=== PATIENT | male | born 1945 | race Caucasian/White ===

== ENCOUNTER 2017-06-24 13:21 | Inpatient (IN) | payer OTHER, MEDICARE ==
[2017-06-24] VITALS (8 sets, daily range): BP systolic 157–198; BP diastolic 85–152; PULSE 79–94; RESP 15–20; TEMP 97.8–98.3; O2SAT 95–100
[~2017-06-24] VITALS: Ht 170.2 cm; Wt 80.5 kg
--- NOTE | 2017-06-24 13:41 | PD ---
HPI Chief Complaint: Fall Time Seen by Provider: 13:31 Travel History International Travel<30 days: No Contact w/Intl Traveler<30days: No Traveled to known affect area: No History of Present Illness HPI per ems, patient was shopping at [employer] when he fell, it was not immediately witnessed....but no apparent tonic clonic activity. apparently patient got up and kept shopping, by the time he got to counter to pay, he kept asking server cashier if he had paid (which he had already, but kept asking), so ranch manager alerted and 911 called...patient stated to ems, all he wants to do is go to his car so he can get back home. at this time however patient was still confused though ambulatory on his own. PER DAUGHTER NO H/O SEIZURE ONLY OF HTN AND DM PFSH Social History Tobacco Use: No Allergies-Medications (Allergen,Severity, Reaction): Coded Allergies: loratadine (Verified Allergy, Intermediate, Nausea/Vomiting, 06/24/17) pseudoephedrine (Verified Allergy, Intermediate, Nausea/Vomiting, 06/24/17) Reported Meds & Prescriptions Reported Meds & Active Scripts Active No Active Prescriptions or Reported Medications Review of Systems ROS Limitations: Altered Mental Status Except as stated in HPI: all other systems reviewed are Neg General / Constitutional: No: Fever Eyes: No: Visual changes HENT: No: Headaches Cardiovascular: No: Chest Pain or Discomfort Respiratory: No: Shortness of Breath Gastrointestinal: No: Abdominal Pain Genitourinary: No: Dysuria Musculoskeletal: No: Pain Skin: No Rash Neurologic: No: Weakness Psychiatric: No: Depression Endocrine: No: Polydipsia Hematologic/Lymphatic: No: Easy Bruising Physical Exam Narrative GENERAL: SKIN: Warm and dry. HEAD: Atraumatic. Normocephalic. EYES: Pupils equal and round. No scleral icterus. No injection or drainage. ENT: No nasal bleeding or discharge. Mucous membranes pink and moist. right incisor tooth has been avulsed NECK: Trachea midline. No JVD. CARDIOVASCULAR: Regular rate and rhythm. RESPIRATORY: No accessory muscle use. Clear to auscultation. Breath sounds equal bilaterally. GASTROINTESTINAL: Abdomen soft, non-tender, nondistended. MUSCULOSKELETAL: Extremities without clubbing, cyanosis, or edema. No obvious deformities. NEUROLOGICAL: Awake and alert but confused. No obvious cranial nerve deficits. Motor grossly within normal limits. Five out of 5 muscle strength in the arms and legs. Normal speech. PSYCHIATRIC: Appropriate mood and affect; insight and judgment normal. Data Data Last Documented VS Vital Signs Date Time Temp Pulse Resp B/P (MAP) Pulse Ox O2 Delivery O2 Flow Rate FiO2 06/24/17 13:35 89 18 100 Room Air 06/24/17 13:35 98.3 198/152 (167) Orders Orders Complete Blood Count With Diff (06/24/17 13:31) Alcohol (Ethanol) (06/24/17 13:31) Drug Screen, Random Urine (06/24/17 13:31) Electrocardiogram (06/24/17 ) Ct Brain W/O Iv Contrast(Rout) (06/24/17 ) Blood Glucose (06/24/17 13:31) Ecg Monitoring (06/24/17 13:31) Iv Access Insert/Monitor (06/24/17 13:31) Oximetry (06/24/17 13:31) Comprehensive Metabolic Panel (06/24/17 13:31) Urinalysis - C+S If Indicated (06/24/17 13:31) Ct Cerv Spine W/O Contrast (06/24/17 13:46) Labetalol Inj (Trandate Inj) (06/24/17 16:15) Labs Laboratory Tests Test 06/24/17 14:44 White Blood Count 8.3 TH/MM3 Red Blood Count 4.69 MIL/MM3 Hemoglobin 14.3 GM/DL Hematocrit 40.4 % Mean Corpuscular Volume 86.0 FL Mean Corpuscular Hemoglobin 30.4 PG Mean Corpuscular Hemoglobin Concent 35.3 % Red Cell Distribution Width 14.5 % Platelet Count 182 TH/MM3 Mean Platelet Volume 8.6 FL Neutrophils (%) (Auto) 73.0 % Lymphocytes (%) (Auto) 16.9 % Monocytes (%) (Auto) 7.3 % Eosinophils (%) (Auto) 2.2 % Basophils (%) (Auto) 0.6 % Neutrophils # (Auto) 6.0 TH/MM3 Lymphocytes # (Auto) 1.4 TH/MM3 Monocytes # (Auto) 0.6 TH/MM3 Eosinophils # (Auto) 0.2 TH/MM3 Basophils # (Auto) 0.0 TH/MM3 CBC Comment DIFF FINAL Differential Comment Urine Color YELLOW Urine Turbidity CLEAR Urine pH 6.5 Urine Specific [place] 1.020 Urine Protein 100 mg/dL Urine Glucose (UA) 1000 mg/dL Urine Ketones NEG mg/dL Urine Occult Blood SMALL Urine Nitrite NEG Urine Bilirubin NEG Urine Urobilinogen LESS THAN 2.0 MG/DL Urine Leukocyte Esterase NEG Urine RBC 5 /hpf Urine WBC 3 /hpf Microscopic Urinalysis Comment CULT NOT INDICATED Blood Urea Nitrogen 18 MG/DL Creatinine 1.17 MG/DL Random Glucose 290 MG/DL Total Protein 7.5 GM/DL Albumin 3.5 GM/DL Calcium Level 8.2 MG/DL Alkaline Phosphatase 92 U/L Aspartate Amino Transf (AST/SGOT) 27 U/L Alanine Aminotransferase (ALT/SGPT) 20 U/L Total Bilirubin 0.5 MG/DL Sodium Level 134 MEQ/L Potassium Level 4.5 MEQ/L Chloride Level 102 MEQ/L Carbon Dioxide Level 22.8 MEQ/L Anion Gap 9 MEQ/L Estimat Glomerular Filtration Rate 61 ML/MIN Urine Opiates Screen NEG Urine Barbiturates Screen NEG Urine Amphetamines Screen NEG Urine Benzodiazepines Screen NEG Urine Cocaine Screen NEG Urine Cannabinoids Screen NEG Ethyl Alcohol Level LESS THAN 3 MG/DL MDM Medical Decision Making Medical Screen Exam Complete: Yes Emergency Medical Condition: Yes Medical Record Reviewed: Yes Interpretation(s) ekg: nsr 90, pvc, incomplete rbbb, frequent pvc, Differential Diagnosis ich v skull fx v syncope Narrative Course DUE TO PATIENT'S HYPERTENSIVE NATURE, AND FREQUENT PVC'S, THE PATIENT'S SYNCOPE IS BELIEVED TO HAVE A CARDIAC SOURCE AND THUS REQUIRES FURTHER INVESTIGATION Critical Care Narrative CRITICAL CARE NOTE: With evaluation of the patient, labs, EKG, receipt of radiologic studies, administration of medications, reevaluation the patient and discussion of the patient with the admitting physicians, the total critical care time was [30] minutes. Time to perform other separately billable procedures was not included in the critical care time. Diagnosis Primary Impression: SYNCOPE Additional Impressions: Accelerated hypertension FREQUENT MONOMORPHIC PVC Admitting Information Admitting Physician Requests: Observation Scripts No Active Prescriptions or Reported Meds Mathew Varner MD Jun 24, 2017 13:41
--- NOTE | 2017-06-24 14:11 | RADRPT ---
EXAM DATE/TIME: 06/24/2017 13:51 [facility] COMPARISON: No previous studies available for comparison. INDICATIONS : Unwitnessed fall, altered mental status, confusion. RADIATION DOSE: 39.91 CTDIvol (mGy) MEDICAL HISTORY : Hypertension. Diabetes SURGICAL HISTORY : None. ENCOUNTER: Initial ACUITY: 1 day PAIN SCALE: 3/10 LOCATION: cranial TECHNIQUE: Multiple contiguous axial images were obtained of the head. Using automated exposure control and adj ustment of the mA and/or kV according to patient size, radiation dose was kept as low as reasonably a chievable to obtain optimal diagnostic quality images. DICOM format image data is available electro nically for review and comparison. FINDINGS: CEREBRUM: The ventricles are normal for age. No evidence of midline shift, mass lesion, hemorrhage or acute in farction. No extra-axial fluid collections are seen. POSTERIOR FOSSA: The cerebellum and brainstem are intact. The 4th ventricle is midline. The cerebellopontine angle i s unremarkable. EXTRACRANIAL: The visualized portion of the orbits is intact. Mucoperiosteal thickening in both maxillary sinuses worse on the right than the left. SKULL: The calvaria is intact. No evidence of skull fracture. CONCLUSION: Negative for acute process. Chronic sinus disease. Arnaud De Anda MD FACR on June 24, 2017 at 13:55 Board Certified Radiologist. This report was verified electronically.
--- NOTE | 2017-06-24 14:16 | RADRPT ---
EXAM DATE/TIME: 06/24/2017 13:51 [facility] COMPARISON: No previous studies available for comparison. INDICATIONS : Unwitnessed fall.Confusion. RADIATION DOSE: 19.07 CTDIvol (mGy) MEDICAL HISTORY : Hypertension. Diabetes SURGICAL HISTORY : None. ENCOUNTER: Initial ACUITY: 1 day PAIN SCALE: 3/10 LOCATION: Bilateral neck TECHNIQUE: Volumetric scanning of the cervical spine was performed. Multiplanar reconstructions in the sagittal, coronal and oblique axial planes were performed. Using automated exposure control and adjustment o f the mA and/or kV according to patient size, radiation dose was kept as low as reasonably achievable to obtain optimal diagnostic quality images. DICOM format image data is available electronically f or review and comparison. FINDINGS: VERTEBRAE: Normal vertebral body height. ALIGNMENT: No evidence of subluxation. C2-C3: The bony spinal canal is normal in size. No evidence of disc bulge or herniation. The neural forami na are bilaterally patent. C3-C4: Large spur is seen encroaching the right neural foramen. C4-C5: Mild facet disease is present. There is no significant stenosis. C5-C6: Mild facet disease is present with minimal left-sided neural foramina encroachment. C6-C7: Right sided neuroforamina encroachment is evident. There is no spinal stenosis. C7-T1: The bony spinal canal is normal in size. No evidence of disc bulge or herniation. The neural forami na are bilaterally patent. CONCLUSION: Mild degenerative changes. No fracture Arnaud De Anda MD FACR on June 24, 2017 at 14:09 Board Certified Radiologist. This report was verified electronically.
[2017-06-24 15:18] LABS: BASOPHIL % 0.6 % (0.0-2.0); EOSINOPHIL # 0.2 TH/MM3 (0-0.4); EOSINOPHIL % 2.2 % (0.0-4.0); HEMATOCRIT 40.4 % (39.0-51.0); HEMOGLOBIN 14.3 GM/DL (13.0-17.0); LYMPH % 16.9 % (9.0-44.0); LYMPHOCYTE # 1.4 TH/MM3 (1.0-4.8); MEAN CORPUSCULAR HEMOGLOBIN 30.4 PG (27.0-34.0); MEAN CORPUSCULAR HGB CONC 35.3 % (32.0-36.0); MEAN PLATELET VOLUME 8.6 FL (7.0-11.0); MONO % 7.3 % (0.0-8.0); MONOCYTE # 0.6 TH/MM3 (0-0.9); PLATELET COUNT 182 TH/MM3 (150-450); RED BLOOD COUNT 4.69 MIL/MM3 (4.50-5.90); RED CELL DISTRIBUTION WIDTH 14.5 % (11.6-17.2); WHITE BLOOD COUNT 8.3 TH/MM3 (4.0-11.0)
[2017-06-24 15:34] LABS: BILIRUBIN, URINE NEG (NEG); BLOOD, URINE SMALL (NEG); GLUCOSE,URINE 1000 mg/dL (NEG); KETONE, URINE NEG (NEG); NITRITE,URINE NEG (NEG); PH, URINE 6.5 (5.0-8.5); URINE COLOR YELLOW (YELLW/STRAW); URINE LEUKOCYTE ESTERASE NEG (NEG)
[2017-06-24 15:38] LABS: ALBUMIN 3.5 GM/DL (3.4-5.0); ALKALINE PHOSPHATASE 92 U/L (45-117); ALT (GPT) 20 U/L (12-78); AST (GOT) 27 U/L (15-37); BICARBONATE 22.8 MEQ/L (21.0-32.0); BLOOD UREA NITROGEN 18 MG/DL (7-18); CALCIUM 8.2 MG/DL (8.5-10.1); CHLORIDE 102 MEQ/L (98-107); CREATININE 1.17 MG/DL (0.60-1.30); GLOMERULAR FILTRATION RATE 61 ML/MIN (>89); GLUCOSE,RANDOM 290 MG/DL (74-106); SODIUM (NA) 134 MEQ/L (136-145); TOTAL BILIRUBIN ADULT 0.5 MG/DL (0.2-1.0); TOTAL PROTEIN 7.5 GM/DL (6.4-8.2)
[2017-06-24] MEDS ORDERED: LABETALOL HCL 100 MG/20 ML VIAL IV PUSH ONE (16:15)
[2017-06-24] MEDS ORDERED: NALOXONE HCL 0.4 MG/ML AMP IV PUSH PRN (17:00)
[2017-06-24] MEDS ORDERED: ONDANSETRON HCL 4 MG/2 ML VIAL IVP PRN (17:00)
[2017-06-24] MEDS ORDERED: ACETAMINOPHEN 325 MG TAB PO PRN (17:00)
[2017-06-24] MEDS ORDERED: SODIUM CHLORIDE 0.9% FLUSH 10 ML FLUSH IV FLUSH PRN (17:00)
[2017-06-24] MEDS ORDERED: BISACODYL 10 MG SUPP RECTAL PRN (17:00)
[2017-06-24] MEDS ORDERED: LACTULOSE SYRUP 20 GM/30 ML CUP PO PRN (17:00)
[2017-06-24] MEDS ORDERED: MAGNESIUM HYDROXIDE SUSP 30 ML CUP PO PRN (17:00)
[2017-06-24] MEDS ORDERED: SENNOSIDES 8.6 MG TAB PO PRN (17:00)
--- NOTE | 2017-06-24 17:08 | HHI.HP ---
[facility] Primary Care Physician No Primary Care Physician Admission Diagnosis SYNCOPE,ACCELERATED HTN,BIGEMINY Diagnoses: (1) Syncope (2) Diabetes (3) HTN (hypertension) Chief Complaint: Passed out Travel History International Travel<30 Days: No Contact w/Intl Traveler <30 Da: No Traveled to Known Affected Are: No History of Present Illness Written by Curt Guerra, acting as scribe for [Nehal] on 06/24/17 at 17:01. 71-year-old with PMH of DM, and HTN who presented to the ED via [facility] after suffering syncopal episode while at [facility]. Daughter who is at bedside repots that patient was at [employer] at the [place] when he reportedly became incoherent, with repetitive speaking. Patient is not sure what occurred, but remembers that his head hit the floor. Patient repots that he does have a history of lightheadedness when he takes his Metformin more than once a day. Lightheadedness will be even worse when he takes glipizide along with the Metformin for this reason he does not takes his Glipizide on a regular basis. Patient repots chest soreness and pain, believes this may be related to the fall. At the moment he denies any SOB, lightheadedness, nausea, vomiting, headaches, visual changes, or weakness. His only pain that he complains of in the head is from "head brace" that was placed on him. He also repots taking supplements which he gets through [place] to prevent him from having strokes since he has a past family history of flanagan. Pas in [facility] to get subs. Incoherent repetitive speaking and patient remembers hitting floor. Right sided chest pain, hit his face with broken tooth. No headaches, pain from neck brace. No SOB no lightheadedness, no N/V. When he takes metformin more than once a day he will get lightheaded. Only medication he is taken is Metformin. Will take the glipizide once in a while only. Takes supplements over [place] for prevention of strokes. Repots he [facility] and was told this was negative. Denies any weakness or weakness or numbness. DM HTN DM arrhythmia (frequent PVC's) Holter monitor in place before Heart cath done in [facility] negative done yrs ago Family history of HLD, DM, Father and 2 brothers with strokes in 60's Tobacco: Denies Alcohol:Denies Illicit drugs:Denies Past Family Social History Allergies: Coded Allergies: loratadine (Verified Allergy, Intermediate, Nausea/Vomiting, 06/24/17) pseudoephedrine (Verified Allergy, Intermediate, Nausea/Vomiting, 06/24/17) Physical Exam Vital Signs Vital Signs Date Time Temp Pulse Resp B/P (MAP) Pulse Ox O2 Delivery O2 Flow Rate FiO2 06/24/17 16:46 91 18 157/94 (115) 100 Room Air 06/24/17 14:45 88 15 198/115 (142) 100 Room Air 06/24/17 13:35 89 18 100 Room Air 06/24/17 13:35 89 18 100 Room Air 06/24/17 13:35 98.3 87 18 198/152 (167) 100 Room Air 06/24/17 13:31 97.8 89 18 198/123 (148) 100 Physical Exam GENERAL: This is a well-nourished, well-developed patient, in no apparent distress. SKIN: No rashes, ecchymoses or lesions. Cool and dry. HEAD: Atraumatic. Normocephalic. No temporal or scalp tenderness. EYES: Pupils equal round and reactive. Extraocular motions intact. No scleral icterus. No injection or drainage. ENT: Nose without bleeding, purulent drainage or septal hematoma. Throat without erythema, tonsillar hypertrophy or exudate. Uvula midline. Airway patent. NECK: Trachea midline. No JVD or lymphadenopathy. Supple, nontender, no meningeal signs. CARDIOVASCULAR: Regular rate and rhythm without murmurs, gallops, or rubs. RESPIRATORY: Clear to auscultation. Breath sounds equal bilaterally. No wheezes , rales, or rhonchi. GASTROINTESTINAL: Abdomen soft, non-tender, nondistended. No hepato-splenomegaly , or palpable masses. No guarding. MUSCULOSKELETAL: Extremities without clubbing, cyanosis, or edema. No joint tenderness, effusion, or edema noted. No calf tenderness. Negative Homans sign bilaterally. NEUROLOGICAL: Awake and alert. Cranial nerves II through XII intact. Motor and sensory grossly within normal limits. Five out of 5 muscle strength in all muscle groups. Normal speech. Laboratory Laboratory Tests Test 06/24/17 14:44 White Blood Count 8.3 Red Blood Count 4.69 Hemoglobin 14.3 Hematocrit 40.4 Mean Corpuscular Volume 86.0 Mean Corpuscular Hemoglobin 30.4 Mean Corpuscular Hemoglobin Concent 35.3 Red Cell Distribution Width 14.5 Platelet Count 182 Mean Platelet Volume 8.6 Neutrophils (%) (Auto) 73.0 Lymphocytes (%) (Auto) 16.9 Monocytes (%) (Auto) 7.3 Eosinophils (%) (Auto) 2.2 Basophils (%) (Auto) 0.6 Neutrophils # (Auto) 6.0 Lymphocytes # (Auto) 1.4 Monocytes # (Auto) 0.6 Eosinophils # (Auto) 0.2 Basophils # (Auto) 0.0 CBC Comment DIFF FINAL Differential Comment Urine Color YELLOW Urine Turbidity CLEAR Urine pH 6.5 Urine Specific [place] 1.020 Urine Protein 100 Urine Glucose (UA) 1000 Urine Ketones NEG Urine Occult Blood SMALL Urine Nitrite NEG Urine Bilirubin NEG Urine Urobilinogen LESS THAN 2.0 Urine Leukocyte Esterase NEG Urine RBC 5 Urine WBC 3 Microscopic Urinalysis Comment CULT NOT INDICATED Blood Urea Nitrogen 18 Creatinine 1.17 Random Glucose 290 Total Protein 7.5 Albumin 3.5 Calcium Level 8.2 Alkaline Phosphatase 92 Aspartate Amino Transf (AST/SGOT) 27 Alanine Aminotransferase (ALT/SGPT) 20 Total Bilirubin 0.5 Sodium Level 134 Potassium Level 4.5 Chloride Level 102 Carbon Dioxide Level 22.8 Anion Gap 9 Estimat Glomerular Filtration Rate 61 Urine Opiates Screen NEG Urine Barbiturates Screen NEG Urine Amphetamines Screen NEG Urine Benzodiazepines Screen NEG Urine Cocaine Screen NEG Urine Cannabinoids Screen NEG Ethyl Alcohol Level LESS THAN 3 Result Diagram: 06/24/17 1444 06/24/17 1444 Caprini VTE Risk Assessment Caprini Risk Assessment Model Point Value = 1 Point Value = 2 Point Value = 3 Point Value = 5 Age 41-60 Minor surgery BMI > 25 kg/m2 Swollen legs Varicose veins or History of unexplained or recurrent spontaneous Oral contraceptives or hormone replacement Sepsis (< 1 month) Serious lung disease, including pneumonia (< 1 month) Abnormal pulmonary function Acute myocardial infarction Congestive heart failure (< 1 month) History of inflammatory bowel disease Medical patient at bed rest Age 61-74 Arthroscopic surgery Major open surgery (> 45 min) Laparoscopic surgery (> 45 min) Malignancy Confined to bed (> 72 hours) Immobilizing plaster cast Central venous access Age >= 75 History of VTE Family history of VTE Factor V Leiden Prothrombin [id number] Lupus anticoagulant Anticardiolipin antibodies Elevated serum homocysteine Heparin-induced thrombocytopenia Other congenital or acquired thrombophilia Stroke (< 1 month) Elective arthroplasty Hip, pelvis, or leg fracture Acute spinal cord injury (< 1 month) Prophylaxis Regimen Total Risk Factor Score Risk Level Prophylaxis Regimen 0-1 Low Early ambulation 2 Moderate Order ONE of the following: *Sequential Compression Device (SCD) *Heparin 5000 units SQ BID 3-4 Higher Order ONE of the following medications: *Heparin 5000 units SQ TID *Enoxaparin/Lovenox 40 mg SQ daily (WT < 150 kg, CrCl > 30 mL/min) *Enoxaparin/Lovenox 30 mg SQ daily (WT < 150 kg, CrCl > 10-29 mL/min) *Enoxaparin/Lovenox 30 mg SQ BID (WT < 150 kg, CrCl > 30 mL/min) AND/OR *Sequential Compression Device (SCD) 5 or more Highest Order ONE of the following medications: *Heparin 5000 units SQ TID (Preferred with Epidurals) *Enoxaparin/Lovenox 40 mg SQ daily (WT < 150 kg, CrCl > 30 mL/min) *Enoxaparin/Lovenox 30 mg SQ daily (WT < 150 kg, CrCl > 10-29 mL/min) *Enoxaparin/Lovenox 30 mg SQ BID (WT < 150 kg, CrCl > 30 mL/min) AND *Sequential Compression Device (SCD) Assessment and Plan Assessment and Plan This note was transcribed by OMAR Manzanares . I, Dr. Noemí Calvert personally performed the history, physical exam, and medical decision making; and confirmed the accuracy of the information in the transcribed note. Authenticated by Dr. Noemí Calvert on 06/24/17 at 17:01. Physician Certification Order for Inpatient Services The services are ordered in accordance with Medicare regulations or non- Medicare payer requirements, as applicable. In the case of services not specified as inpatient-only, they are appropriately provided as inpatient services in accordance with the 2-midnight benchmark. days is the estimated time the patient will need to remain in the hospital, assuming treatment plan goals are met and no additional complications. Curt Guerra Jun 24, 2017 17:08 Noemí Calvert MD Jun 24, 2017 17:32
--- NOTE | 2017-06-24 17:39 | HHI.HP ---
[facility] Primary Care Physician No Primary Care Physician Admission Diagnosis SYNCOPE,ACCELERATED HTN,BIGEMINY Diagnoses: (1) Syncope Diagnosis: Principal (2) Diabetes (3) HTN (hypertension) Chief Complaint: Passed out Travel History International Travel<30 Days: No Contact w/Intl Traveler <30 Da: No Traveled to Known Affected Are: No History of Present Illness Written by Curt Guerra, acting as scribe for [Nehal] on 06/24/17 at 17:01. 71-year-old with PMH of DM, and HTN who presented to the ED via [facility] after suffering syncopal episode while at [place]. Daughter who is at bedside repots that patient was at [employer] at the [place] when he reportedly became incoherent, with repetitive speaking. Patient is not sure what occurred, but remembers that his head hit the floor. Patient repots that he does have a history of lightheadedness when he takes his Metformin more than once a day. Lightheadedness will be even worse when he takes glipizide along with the Metformin for this reason he does not takes his Glipizide on a regular basis. Patient repots chest soreness and pain, believes this may be related to the fall. At the moment he denies any SOB, lightheadedness, nausea, vomiting, headaches, visual changes, or weakness. His only pain that he complains of in the head is from "head brace" that was placed on him. He also repots taking supplements which he gets through [employer] to prevent him from having strokes since he has a past family history of flanagan. 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 Daughter reports that patient was supposed to be on a beta dyana although has not been taking this. Discussed the plan to keep patient in observation unit for workup along with testing. Patient reports that he has had an EEG in the past due to eye twitching. He also reports having heart catheterization over 10 years ago which was normal. [facility] a [facility] which she states was normal. Review of Systems Except as stated in HPI: all other systems reviewed are Neg Past Family Social History Past Medical History DM HTN arrhythmia (frequent PVC's) Past Surgical History Heart catheterization 14 years ago, negative Reported Medications Reported Meds & Active Scripts Active No Active Prescriptions or Reported Medications Allergies: Coded Allergies: loratadine (Verified Allergy, Intermediate, Nausea/Vomiting, 06/24/17) pseudoephedrine (Verified Allergy, Intermediate, Nausea/Vomiting, 06/24/17) Active Ordered Medications Current Medications Medications (Trade) Dose Ordered Sig/Juany Route Start Time Stop Time Status Last Admin Sodium Chloride 1,000 ml @ 100 mls/hr Q10H IV 06/24/17 16:49 UNV (NS Flush) 2 ml UNSCH PRN IV FLUSH 06/24/17 17:00 UNV (NS Flush) 2 ml BID IV FLUSH 06/24/17 21:00 UNV (Tylenol) 650 mg Q4H PRN PO 06/24/17 17:00 UNV (Zofran Inj) 4 mg Q6H PRN IVP 06/24/17 17:00 UNV (Lovenox Inj) 40 mg Q24H SQ 06/24/17 17:00 UNV (Narcan Inj) 0.4 mg UNSCH PRN IV PUSH 06/24/17 17:00 UNV (Barbie-Colace) 1 tab BID PO 06/24/17 21:00 UNV (Milk Of Magnesia Liq) 30 ml Q12H PRN PO 06/24/17 17:00 UNV (Senokot) 17.2 mg Q12H PRN PO 06/24/17 17:00 UNV (Dulcolax Supp) 10 mg DAILY PRN RECTAL 06/24/17 17:00 UNV (Lactulose Liq) 30 ml DAILY PRN PO 06/24/17 17:00 UNV Family History Father: Stroke in his 60s 2 brothers: Stroke also in their 60s Family history of hyperlipidemia and diabetes. Social History Tobacco: Denies Alcohol:Denies Illicit drugs:Denies Patient is originally from [place], half Turkish half Maldivian Physical Exam Vital Signs Vital Signs Date Time Temp Pulse Resp B/P (MAP) Pulse Ox O2 Delivery O2 Flow Rate FiO2 06/24/17 16:46 91 18 157/94 (115) 100 Room Air 06/24/17 14:45 88 15 198/115 (142) 100 Room Air 06/24/17 13:35 89 18 100 Room Air 06/24/17 13:35 89 18 100 Room Air 06/24/17 13:35 98.3 87 18 198/152 (167) 100 Room Air 06/24/17 13:31 97.8 89 18 198/123 (148) 100 Physical Exam GENERAL: This is a well-nourished, well-developed patient, in no apparent distress. SKIN: No rashes, ecchymoses, small right chin abrasion. Cool and dry. HEAD: Atraumatic. Normocephalic. No temporal or scalp tenderness. EYES: Pupils equal round and reactive. Extraocular motions intact. No scleral icterus. No injection or drainage. ENT: Nose without bleeding, purulent drainage or septal hematoma. Throat without erythema. Uvula midline. Visible front tooth missing. Airway patent. NECK: Trachea midline. No JVD or lymphadenopathy. Supple, nontender. CARDIOVASCULAR: Regular rate, with bigeminy seen on telemetry, S1,S2 without murmurs, gallops, or rubs. RESPIRATORY: Clear to auscultation. Breath sounds equal bilaterally. No wheezes , rales, or rhonchi. GASTROINTESTINAL: Abdomen soft, non-tender, nondistended. No hepato-splenomegaly , or palpable masses. No guarding. MUSCULOSKELETAL: Extremities without clubbing, cyanosis, or edema. No joint tenderness, effusion, or edema noted. No calf tenderness. Negative Homans sign bilaterally. NEUROLOGICAL: Awake and alert. Cranial nerves II through XII intact. Motor and sensory grossly within normal limits. Five out of 5 muscle strength in all muscle groups. Normal speech. Laboratory Laboratory Tests Test 06/24/17 14:44 White Blood Count 8.3 Red Blood Count 4.69 Hemoglobin 14.3 Hematocrit 40.4 Mean Corpuscular Volume 86.0 Mean Corpuscular Hemoglobin 30.4 Mean Corpuscular Hemoglobin Concent 35.3 Red Cell Distribution Width 14.5 Platelet Count 182 Mean Platelet Volume 8.6 Neutrophils (%) (Auto) 73.0 Lymphocytes (%) (Auto) 16.9 Monocytes (%) (Auto) 7.3 Eosinophils (%) (Auto) 2.2 Basophils (%) (Auto) 0.6 Neutrophils # (Auto) 6.0 Lymphocytes # (Auto) 1.4 Monocytes # (Auto) 0.6 Eosinophils # (Auto) 0.2 Basophils # (Auto) 0.0 CBC Comment DIFF FINAL Differential Comment Urine Color YELLOW Urine Turbidity CLEAR Urine pH 6.5 Urine Specific [place] 1.020 Urine Protein 100 Urine Glucose (UA) 1000 Urine Ketones NEG Urine Occult Blood SMALL Urine Nitrite NEG Urine Bilirubin NEG Urine Urobilinogen LESS THAN 2.0 Urine Leukocyte Esterase NEG Urine RBC 5 Urine WBC 3 Microscopic Urinalysis Comment CULT NOT INDICATED Blood Urea Nitrogen 18 Creatinine 1.17 Random Glucose 290 Total Protein 7.5 Albumin 3.5 Calcium Level 8.2 Alkaline Phosphatase 92 Aspartate Amino Transf (AST/SGOT) 27 Alanine Aminotransferase (ALT/SGPT) 20 Total Bilirubin 0.5 Sodium Level 134 Potassium Level 4.5 Chloride Level 102 Carbon Dioxide Level 22.8 Anion Gap 9 Estimat Glomerular Filtration Rate 61 Urine Opiates Screen NEG Urine Barbiturates Screen NEG Urine Amphetamines Screen NEG Urine Benzodiazepines Screen NEG Urine Cocaine Screen NEG Urine Cannabinoids Screen NEG Ethyl Alcohol Level LESS THAN 3 Result Diagram: 06/24/17 1444 06/24/17 1444 Imaging Last Impressions Cervical Spine CT 06/24/17 1346 Signed Impressions: Service Date/Time: Saturday, June 24, 2017 13:51 - CONCLUSION: Mild degenerative changes. No fracture Arnaud De Anda MD FACR Head CT 06/24/17 0000 Signed Impressions: Service Date/Time: Saturday, June 24, 2017 13:51 - CONCLUSION: Negative for acute process. Chronic sinus disease. Arnaud De Anda MD FACR Caprini VTE Risk Assessment Caprini VTE Risk Assessment: Mod/High Risk (score >= 2) Caprini Risk Assessment Model Point Value = 1 Point Value = 2 Point Value = 3 Point Value = 5 Age 41-60 Minor surgery BMI > 25 kg/m2 Swollen legs Varicose veins or History of unexplained or recurrent spontaneous Oral contraceptives or hormone replacement Sepsis (< 1 month) Serious lung disease, including pneumonia (< 1 month) Abnormal pulmonary function Acute myocardial infarction Congestive heart failure (< 1 month) History of inflammatory bowel disease Medical patient at bed rest Age 61-74 Arthroscopic surgery Major open surgery (> 45 min) Laparoscopic surgery (> 45 min) Malignancy Confined to bed (> 72 hours) Immobilizing plaster cast Central venous access Age >= 75 History of VTE Family history of VTE Factor V Leiden Prothrombin [id number] Lupus anticoagulant Anticardiolipin antibodies Elevated serum homocysteine Heparin-induced thrombocytopenia Other congenital or acquired thrombophilia Stroke (< 1 month) Elective arthroplasty Hip, pelvis, or leg fracture Acute spinal cord injury (< 1 month) Prophylaxis Regimen Total Risk Factor Score Risk Level Prophylaxis Regimen 0-1 Low Early ambulation 2 Moderate Order ONE of the following: *Sequential Compression Device (SCD) *Heparin 5000 units SQ BID 3-4 Higher Order ONE of the following medications: *Heparin 5000 units SQ TID *Enoxaparin/Lovenox 40 mg SQ daily (WT < 150 kg, CrCl > 30 mL/min) *Enoxaparin/Lovenox 30 mg SQ daily (WT < 150 kg, CrCl > 10-29 mL/min) *Enoxaparin/Lovenox 30 mg SQ BID (WT < 150 kg, CrCl > 30 mL/min) AND/OR *Sequential Compression Device (SCD) 5 or more Highest Order ONE of the following medications: *Heparin 5000 units SQ TID (Preferred with Epidurals) *Enoxaparin/Lovenox 40 mg SQ daily (WT < 150 kg, CrCl > 30 mL/min) *Enoxaparin/Lovenox 30 mg SQ daily (WT < 150 kg, CrCl > 10-29 mL/min) *Enoxaparin/Lovenox 30 mg SQ BID (WT < 150 kg, CrCl > 30 mL/min) AND *Sequential Compression Device (SCD) Assessment and Plan Problem List: (1) Syncope ICD Code: R55 - Syncope and collapse (2) Diabetes ICD Code: E11.9 - Type 2 diabetes mellitus without complications (3) HTN (hypertension) ICD Code: I10 - Essential (primary) hypertension Assessment and Plan 71-year-old male with past medical history of hypertension, diabetes, and frequent PVCs who suffered syncopal episode while a supermarket hitting his head and chipping front tooth. Patient reportedly became incoherent with repetitive speaking prior to landing on the floor. Syncopal episode -Cervical spine CT scan done, reviewed mild degenerative changes, no fracture. - Head CT reviewed, negative for acute process, chronic sinus disease. - Will admit patient to observation with telemetry for workup - Neuro checks every 4 hours - Check 2-D echo - Will check EEG - Check carotid ultrasound - Consult cardiology, appreciate recommendations. - Tylenol for chest soreness/pain Hypertension, uncontrolled - Blood pressure on admission 198/123, patient received 10 mg of Labetalol IV in ED - Start metoprolol 25 mg twice a day - Vasotec 2.5 mg IV Q6 PRN - Monitor BP Diabetes mellitus II - Accu-Cheks with insulin sliding scale - ADA diet - Close monitoring for hypoglycemia DVT prophylaxis - SCDs and Lovenox This note was transcribed by AGUEDA Manzanares. I, Dr. Noemí Calvert personally performed the history, physical exam, and medical decision making; and confirmed the accuracy of the information in the transcribed note. Authenticated by Dr. Noemí Calvert on 06/24/17 at 17:01. Curt Guerra Jun 24, 2017 17:39 Noemí Calvert MD Jun 24, 2017 19:01
[2017-06-24] MEDS ORDERED: ENALAPRILAT 2.5 MG/2 ML VIAL IV PUSH PRN (17:45)
[2017-06-24] MEDS ORDERED: GLUCAGON 1 MG/ML VIAL OTHER PRN (18:00)
[2017-06-24] MEDS ORDERED: DEXTROSE 50% IN WATER 50 ML VIAL(D50) IV PUSH PRN (18:00)
[2017-06-24] MEDS: ENOXAPARIN SODIUM 40 MG/0.4 ML SYRINGE SQ SCH (18:38)
[2017-06-24] MEDS: SODIUM CHLOR 0.9% 1000 ML INJ 1,000 ML IV SCH (18:39)
--- NOTE | 2017-06-24 18:48 | RADRPT ---
EXAM DATE/TIME: 06/24/2017 17:52 [facility] COMPARISON: No previous studies available for comparison. INDICATIONS : Syncope. MEDICAL HISTORY : Hypertension. Diabetes. SURGICAL HISTORY : None. ENCOUNTER: Initial ACUITY: 1 day PAIN SCORE: 0/10 LOCATION: Bilateral neck PEAK SYSTOLIC VELOCITIES (cm/sec): ICA/CCA RATIO: Right: 1.3 Left: 0.7 ICA: Right: 74.6 Left: 71.3 CCA: Right: 58.1 Left: 98.3 ECA: Right: 108.0 Left: 78.9 VERTEBRAL: Right: 45.3 antegrade Left: 51.4 antegrade Elevated flow velocities and ICA/CCA ratios have been found to correlate with increased degrees of vessel stenosis, calculated as percentage of diameter relative to a normal segment of distal ICA/CCA FINDINGS: RIGHT CAROTID: No significant stenosis is visualized. The waveforms are within normal limits. LEFT CAROTID: No significant stenosis is visualized. The waveforms are within normal limits. VERTEBRAL ARTERIES: Antegrade flow is seen in both vertebral arteries. MISCELLANEOUS: None. CONCLUSION: 1. Minimal plaque in the carotid arteries bilaterally without hemodynamically significant stenosis. V ertebral artery flow antegrade. Juan Gonzalez MD on June 24, 2017 at 18:45 Board Certified Radiologist. This report was verified electronically.
[2017-06-24] MEDS: METOPROLOL TARTRATE 25 MG TAB PO SCH (20:55)
[2017-06-24] MEDS: DOCUSATE SODIUM 50 MG/SENNA 8.6 MG TAB PO SCH (20:55)
[2017-06-24] MEDS: SODIUM CHLORIDE 0.9% FLUSH 10 ML FLUSH IV FLUSH SCH (20:56)
[2017-06-24] MEDS: INSULIN ASPART SUPPLEMENTAL SCALE SQ SCH (20:56)
[2017-06-25] VITALS (9 sets, daily range): BP systolic 89–191; BP diastolic 84–98; PULSE 74–89; RESP 18–20; TEMP 97.3–98.9; O2SAT 95–99
[2017-06-25] MEDS: SODIUM CHLOR 0.9% 1000 ML INJ 1,000 ML IV SCH ×2 (03:30→20:42)
[2017-06-25] MEDS: SODIUM CHLORIDE 0.9% FLUSH 10 ML FLUSH IV FLUSH SCH ×2 (09:17→20:42)
[2017-06-25] MEDS: INSULIN ASPART SUPPLEMENTAL SCALE SQ SCH ×5 (09:17→20:48)
[2017-06-25] MEDS: METOPROLOL TARTRATE 25 MG TAB PO SCH ×2 (09:17→20:41)
[2017-06-25] MEDS: DOCUSATE SODIUM 50 MG/SENNA 8.6 MG TAB PO SCH ×2 (09:17→20:41)
--- NOTE | 2017-06-25 10:55 | HHI.PR ---
Subjective Remarks 71-year-old with PMH of DM, and HTN who presented to the ED via [facility] after suffering syncopal episode while at [place]. Daughter who is at bedside repots that patient was at [employer] at the check out [place] when he reportedly became incoherent, with repetitive speaking. Patient is not sure what occurred, but remembers that his head hit the floor. Patient repots that he does have a history of lightheadedness when he takes his Metformin more than once a day. Lightheadedness will be even worse when he takes glipizide along with the Metformin for this reason he does not takes his Glipizide on a regular basis. Patient repots chest soreness and pain, believes this may be related to the fall. At the moment he denies any SOB, lightheadedness, nausea, vomiting, headaches, visual changes, or weakness. His only pain that he complains of in the head is from "head brace" that was placed on him. He also repots taking supplements which he gets through [employer] to prevent him from having strokes since he has a past family history of falnagan. 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 Daughter reports that patient was supposed to be on a beta dyana although has not been taking this. Discussed the plan to keep patient in observation unit for workup along with testing. Patient reports that he has had an EEG in the past due to eye twitching. He also reports having heart catheterization over 10 years ago which was normal. [facility] which she states was normal. 06-25 HAD ECHO TODAY CONFUSED/APHASIC NEEDS PT AND OT EVAL AND ST EVAL DW RN AND PT MONITOR TODAY NEED TO OBTAIN HOME MEDICATIONS Objective Vitals Vital Signs Date Time Temp Pulse Resp B/P (MAP) Pulse Ox O2 Delivery O2 Flow Rate FiO2 06/25/17 08:00 98.2 81 20 165/90 (115) 97 06/25/17 04:00 98.4 89 20 89/ 97 06/25/17 03:43 85 06/25/17 00:00 97.3 76 20 103/89 (94) 95 06/24/17 23:40 79 06/24/17 21:15 88 06/24/17 20:00 98.1 94 20 170/96 (120) 95 06/24/17 19:45 Room Air 06/24/17 18:45 98.2 92 20 164/85 (111) 99 06/24/17 18:45 06/24/17 16:46 91 18 157/94 (115) 100 Room Air 06/24/17 14:45 88 15 198/115 (142) 100 Room Air 06/24/17 13:35 89 18 100 Room Air 06/24/17 13:35 89 18 100 Room Air 06/24/17 13:35 98.3 87 18 198/152 (167) 100 Room Air 06/24/17 13:31 97.8 89 18 198/123 (148) 100 Result Diagram: 06/24/17 1444 06/24/17 1444 Other Results Laboratory Tests Test 06/24/17 14:44 White Blood Count 8.3 TH/MM3 Red Blood Count 4.69 MIL/MM3 Hemoglobin 14.3 GM/DL Hematocrit 40.4 % Mean Corpuscular Volume 86.0 FL Mean Corpuscular Hemoglobin 30.4 PG Mean Corpuscular Hemoglobin Concent 35.3 % Red Cell Distribution Width 14.5 % Platelet Count 182 TH/MM3 Mean Platelet Volume 8.6 FL Neutrophils (%) (Auto) 73.0 % Lymphocytes (%) (Auto) 16.9 % Monocytes (%) (Auto) 7.3 % Eosinophils (%) (Auto) 2.2 % Basophils (%) (Auto) 0.6 % Neutrophils # (Auto) 6.0 TH/MM3 Lymphocytes # (Auto) 1.4 TH/MM3 Monocytes # (Auto) 0.6 TH/MM3 Eosinophils # (Auto) 0.2 TH/MM3 Basophils # (Auto) 0.0 TH/MM3 CBC Comment DIFF FINAL Differential Comment Urine Color YELLOW Urine Turbidity CLEAR Urine pH 6.5 Urine Specific [place] 1.020 Urine Protein 100 mg/dL Urine Glucose (UA) 1000 mg/dL Urine Ketones NEG mg/dL Urine Occult Blood SMALL Urine Nitrite NEG Urine Bilirubin NEG Urine Urobilinogen LESS THAN 2.0 MG/DL Urine Leukocyte Esterase NEG Urine RBC 5 /hpf Urine WBC 3 /hpf Microscopic Urinalysis Comment CULT NOT INDICATED Blood Urea Nitrogen 18 MG/DL Creatinine 1.17 MG/DL Random Glucose 290 MG/DL Total Protein 7.5 GM/DL Albumin 3.5 GM/DL Calcium Level 8.2 MG/DL Alkaline Phosphatase 92 U/L Aspartate Amino Transf (AST/SGOT) 27 U/L Alanine Aminotransferase (ALT/SGPT) 20 U/L Total Bilirubin 0.5 MG/DL Sodium Level 134 MEQ/L Potassium Level 4.5 MEQ/L Chloride Level 102 MEQ/L Carbon Dioxide Level 22.8 MEQ/L Anion Gap 9 MEQ/L Estimat Glomerular Filtration Rate 61 ML/MIN Urine Opiates Screen NEG Urine Barbiturates Screen NEG Urine Amphetamines Screen NEG Urine Benzodiazepines Screen NEG Urine Cocaine Screen NEG Urine Cannabinoids Screen NEG Ethyl Alcohol Level LESS THAN 3 MG/DL Imaging Last Impressions Cervical Spine CT 06/24/17 1346 Signed Impressions: Service Date/Time: Saturday, June 24, 2017 13:51 - CONCLUSION: Mild degenerative changes. No fracture Arnaud De Anda MD FACR Head CT 06/24/17 0000 Signed Impressions: Service Date/Time: Saturday, June 24, 2017 13:51 - CONCLUSION: Negative for acute process. Chronic sinus disease. Arnaud De Anda MD FACR Carotid Artery Ultrasound 06/24/17 0000 Signed Impressions: Service Date/Time: Saturday, June 24, 2017 17:52 - CONCLUSION: 1. Minimal plaque in the carotid arteries bilaterally without hemodynamically significant stenosis. Vertebral artery flow antegrade. Juan Gonzalez MD Objective Remarks GENERAL: Awake alert talkative and cooperative some degree of aphasia has difficulty getting the words out SKIN: Warm and dry. HEAD: Atraumatic. Normocephalic. EYES: Pupils equal and round. No scleral icterus. No injection or drainage. Extraocular muscles appear grossly intact ENT: No nasal bleeding or discharge. Mucous membranes pink and moist. Tongue is midline NECK: Trachea midline. No JVD. Supple CARDIOVASCULAR: Regular rate and rhythm. S1 and S2 no S3 or S4 RESPIRATORY: No accessory muscle use. Clear to auscultation. Breath sounds equal bilaterally. GASTROINTESTINAL: Abdomen soft, non-tender, nondistended. Hepatic and splenic margins not palpable. Obese MUSCULOSKELETAL: Extremities without clubbing, cyanosis, or edema. No obvious deformities. NEUROLOGICAL: Awake and alert. No obvious cranial nerve deficits. Motor grossly within normal limits. 4 out of 5 muscle strength in the arms and legs. Normal speech. Some degree of aphasia PSYCHIATRIC: INAppropriate mood and affect; insight and judgment ABnormal. Procedures NONE Medications and IVs Current Medications Labetalol HCl (Trandate Inj) 10 mg ONCE ONCE IV PUSH Last administered on 06/24at 16:43; Start 06/24/17 at 16:15; Stop 06/24/17 at 16:17; Status DC Sodium Chloride 1,000 ml @ 100 mls/hr Q10H IV Last administered on 06/24/17at 18:39; Start 06/24/17 at 18:00 Sodium Chloride (NS Flush) 2 ml UNSCH PRN IV FLUSH FLUSH AFTER USING IV ACCESS ; Start 06/24/17 at 17:00 Sodium Chloride (NS Flush) 2 ml BID IV FLUSH Last administered on 06/25/17at 09: 17; Start 06/24/17 at 21:00 Acetaminophen (Tylenol) 650 mg Q4H PRN PO TEMP > 100.4; Start 06/24/17 at 17:00 Ondansetron HCl (Zofran Inj) 4 mg Q6H PRN IVP NAUSEA OR VOMITING; Start at 17:00 Enoxaparin Sodium (Lovenox Inj) 40 mg Q24H SQ Last administered on 06/24/17at 18 :38; Start 06/24/17 at 18:00 Naloxone HCl (Narcan Inj) 0.4 mg UNSCH PRN IV PUSH SEE LABEL COMMENTS; Start at 17:00 Senna/Docusate Sodium (Barbie-Colace) 1 tab BID PO Last administered on at 09:17; Start 06/24/17 at 21:00 Magnesium Hydroxide (Milk Of Magnesia Liq) 30 ml Q12H PRN PO Mild constipation ; Start 06/24/17 at 17:00 Sennosides (Senokot) 17.2 mg Q12H PRN PO Moderate constipation; Start 06/24/17 at 17:00 Bisacodyl (Dulcolax Supp) 10 mg DAILY PRN RECTAL SEVERE CONSITIPATION; Start at 17:00 Lactulose (Lactulose Liq) 30 ml DAILY PRN PO SEVERE CONSITIPATION; Start at 17:00 Insulin Aspart (NovoLOG SUPPLEMENTAL SCALE) 1 ACHS SLIDING SCALE SQ Last administered on 06/25/17at 09:17; Start 06/24/17 at 21:00 Metoprolol Tartrate (Lopressor) 25 mg Q12HR PO Last administered on 06/25/17at 09:17; Start 06/24/17 at 21:00 Enalaprilat (Vasotec Inj) 2.5 mg Q6H PRN IV PUSH SBP>160, DBP>90 Last administered on 06/24/17at 19:05; Start 06/24/17 at 17:45 Dextrose (D50w (Vial) Inj) 50 ml UNSCH PRN IV PUSH HYPOGLYCEMIA - SEE COMMENTS ; Start 06/24/17 at 18:00 Glucagon (Glucagon Inj) 1 mg UNSCH PRN OTHER HYPOGLYCEMIA-SEE COMMENTS; Start 06/24/17 at 18:00 A/P Problem List: (1) Syncope ICD Code: R55 - Syncope and collapse (2) Diabetes ICD Code: E11.9 - Type 2 diabetes mellitus without complications (3) HTN (hypertension) ICD Code: I10 - Essential (primary) hypertension Assessment and Plan 71-year-old male with past medical history of hypertension, diabetes, and frequent PVCs who suffered syncopal episode while a supermarket hitting his head and chipping front tooth. Patient reportedly became incoherent with repetitive speaking prior to landing on the floor. Syncopal episode -Cervical spine CT scan done, reviewed mild degenerative changes, no fracture. - Head CT reviewed, negative for acute process, chronic sinus disease. - Will admit patient to observation with telemetry for workup - Neuro checks every 4 hours - Check 2-D echo - Will check EEG - Check carotid ultrasound - Consult cardiology, appreciate recommendations. - Tylenol for chest soreness/pain -AWAIT CARDIAC EVAL Hypertension, uncontrolled - Blood pressure on admission 198/123, patient received 10 mg of Labetalol IV in ED - Start metoprolol 25 mg twice a day - Vasotec 2.5 mg IV Q6 PRN - Monitor BP Diabetes mellitus II - Accu-Cheks with insulin sliding scale - ADA diet - Close monitoring for hypoglycemia DVT prophylaxis - SCDs and Lovenox Discharge Planning PT AND OT And ST TO EVAL AND TREAT Arnaud Malone DO Jun 25, 2017 10:55
[2017-06-25 11:53] LABS: BASOPHIL % 0.5 % (0.0-2.0); EOSINOPHIL # 0.1 TH/MM3 (0-0.4); EOSINOPHIL % 0.9 % (0.0-4.0); HEMATOCRIT 37.7 % (39.0-51.0); HEMOGLOBIN 13.1 GM/DL (13.0-17.0); LYMPH % 18.6 % (9.0-44.0); LYMPHOCYTE # 1.6 TH/MM3 (1.0-4.8); MEAN CELL VOLUME 86.7 FL (80.0-100.0); MEAN CORPUSCULAR HEMOGLOBIN 30.1 PG (27.0-34.0); MEAN CORPUSCULAR HGB CONC 34.7 % (32.0-36.0); MEAN PLATELET VOLUME 8.3 FL (7.0-11.0); MONO % 10.8 % (0.0-8.0); MONOCYTE # 0.9 TH/MM3 (0-0.9); NEUT % 69.2 % (16.0-70.0); PLATELET COUNT 173 TH/MM3 (150-450); RED BLOOD COUNT 4.35 MIL/MM3 (4.50-5.90); RED CELL DISTRIBUTION WIDTH 14.5 % (11.6-17.2); WHITE BLOOD COUNT 8.6 TH/MM3 (4.0-11.0)
[2017-06-25 12:12] LABS: BICARBONATE 27.7 MEQ/L (21.0-32.0); CALCIUM 8.6 MG/DL (8.5-10.1); CREATININE 1.14 MG/DL (0.60-1.30)
--- NOTE | 2017-06-25 13:46 | EKG ---
Date Performed: 06/24/2017 Time Performed: 13:43:18 PTAGE: 71 years EKG: Sinus rhythm WITH FREQUENT VENTRICULAR PREMATURE COMPLEXES INCOMPLETE RIGHT BUNDLE BRANCH BLOCK LEFT ANTERIOR FAS CICULAR BLOCK MINIMAL VOLTAGE CRITERIA FOR LVH, CONSIDER NORMAL VARIANT ABNORMAL ECG NO PREVIOUS TRACING DOCTOR: Marcelo Lopez Interpretating Date/Time 06/25/2017 13:43:24
[2017-06-25] MEDS ORDERED: METF1000 PO (15:54)
--- NOTE | 2017-06-25 16:25 | ECHRPT ---
Indication: HYPERTENSIVE HD CONCLUSIONS Normal left ventricular size. Moderate concentric left ventricular hypertrophy. The left ventricular systolic function is low normal with an estimated ejection fraction in the rang e of 50- 55%. Trace mitral valve regurgitation. The pulmonary valve is not well visualized. BP: 198 / 152 HR: 94 Rhythm: MEASUREMENTS (Male / Female) Normal Values Technical Quality: 2D ECHO LV Diastolic Diameter PLAX 4.4 cm 4.2 - 5.9 / 3.9 - 5.3 cm LV Systolic Diameter PLAX 3.6 cm IVS Diastolic Thickness 1.6 cm 0.6 - 1.0 / 0.6 - 0.9 cm LVPW Diastolic Thickness 0.9 cm 0.6 - 1.0 / 0.6 - 0.9 cm LV Relative Wall Thickness 0.6 RV Internal Dim ED PLAX 2.1 cm LA Systolic Diameter LX 3.9 cm 3.0 - 4.0 / 2.7 - 3.8 cm M-MODE Aortic Root Diameter MM 3.1 cm AV Cusp Separation MM 1.9 cm DOPPLER Mitral E Point Velocity 63.1 cm/s Mitral A Point Velocity 96.5 cm/s Mitral E to A Ratio 0.7 TR Peak Velocity 199.3 cm/s TR Peak Gradient 15.9 mmHg FINDINGS LEFT VENTRICLE Normal left ventricular size. Moderate concentric left ventricular hypertrophy. The left ventricular systolic function is low normal with an estimated ejection fraction in the rang e of 50- 55%. RIGHT VENTRICLE Normal right ventricular size and systolic function. LEFT ATRIUM The left atrial size is normal. RIGHT ATRIUM The right atrial size is normal. ATRIAL SEPTUM Normal atrial septal thickness without atrial level shunting by limited color doppler interrogation. AORTA The aortic root and proximal ascending aorta are normal in size on limited imaging. MITRAL VALVE Trace mitral valve regurgitation. AORTIC VALVE Trileaflet aortic valve. No aortic valve stenosis or regurgitation. TRICUSPID VALVE Structurally normal tricuspid valve. No tricuspid valve stenosis or regurgitation. PULMONARY VALVE The pulmonary valve is not well visualized. VESSELS The inferior vena cava is normal in size. PERICARDIUM No pericardial effusion. Ricardo Galeana MD, FACC (Electronically Signed) Final Date:25 June 2017 16:24
[2017-06-25] MEDS ORDERED: LISINOPRIL 10 MG TAB PO SCH (17:15)
[2017-06-25] MEDS: metFORMIN HCL 500 MG TAB PO SCH (18:33)
[2017-06-25] MEDS: ENOXAPARIN SODIUM 40 MG/0.4 ML SYRINGE SQ SCH (18:33)
--- NOTE | 2017-06-25 21:27 | MB ---
cc: GALEN AVENDAÑO DO DATE OF CONSULTATION 06/25/17 REASON FOR CONSULTATION Syncope. HISTORY OF PRESENT ILLNESS Eduardo Jolly is a pleasant 71-year-old male who presented to [facility] emergency room on June 24, 2017 after a syncopal episode. The patient is able to give some history, but the daughter is at the bedside who is helping to relate a history even though she was not there. Apparently, the patient was at [employer] and checking out when he reportedly became incoherent with repetitive speaking. He is not sure what exactly happened at this time, but he remembers falling forward and hitting his face on the floor. He ended up busting his lip open and losing a tooth. It does not appear that he placed his hands out to try to help himself. He states that he did not take any of his typical medicines in the morning. He also did not eat breakfast and was feeling very shaky. He states that he had no chest pain, shortness of breath or palpitations before, during or after the event. In seeing him, he is currently without chest pain, shortness of breath or palpitations. He states that he has known that he has had extensive amount of PVCs for a number of years. He was originally placed on a beta dyana, but has not been taking it as he states it does not work. He originally had a workup for PVCs and was told that he has benign PVCs. PAST MEDICAL HISTORY 1. Diabetes 2. Hypertension 3. Frequent PVCs. PAST SURGICAL HISTORY Heart catheterization around 10 years ago which was negative per the patient. ALLERGIES LORATADINE PSEUDOEPHEDRINE MEDICATIONS Metformin 1000 mg daily. FAMILY HISTORY Father had a stroke in his 60s. He has two brothers that had strokes in their 60s. Denies premature coronary artery disease or sudden cardiac within the family. SOCIAL HISTORY The patient denies alcohol, tobacco or drug abuse. REVIEW OF SYSTEMS 14-systems were reviewed including osteopathic. Pertinent positives and negatives above otherwise negative. PHYSICAL EXAMINATION VITAL SIGNS: Temperature 98.2, heart rate 81, blood pressure 165/90, respirations 20, pulse ox 97% on room air. GENERAL: The patient appears well in no acute distress, alert awake and oriented x3 HEENT: Extraocular muscles intact. Mucous membranes moist. NECK: Supple. No JVD at 45 degrees. No carotid bruits heard bilaterally. Carotid upstroke is brisk in nature. HEART: Regular rate and rhythm. Positive first and second heart sounds with no murmurs, gallops or rubs. LUNGS: Clear to auscultation bilaterally. No wheezes, rales or rhonchi. ABDOMEN: Soft, nontender, nondistended. No organomegaly noted. EXTREMITIES: No clubbing, cyanosis or edema. Femoral and distal pulses are intact bilaterally. NEUROLOGIC: No focal deficits. SKIN: Warm, dry and intact. OSTEOPATHIC: No kyphoscoliosis, lordosis or paraspinal tender points. LABORATORY FINDINGS Hemoglobin 13.1, hematocrit 37.7, platelets 173. Potassium 4.2, BUN 18, creatinine 1.18. CARDIOLOGY STUDIES Electrocardiogram (June 24, 2017 at 13:43) sinus rhythm with frequent PVCs, possible trigeminy, incomplete right bundle branch block, left anterior fascicular block, possible LVH. IMPRESSION 1. Syncope. 2. Accelerated hypertension/hypertensive urgency. 3. Diabetes mellitus. RECOMMENDATIONS 1. Mr. oJlly apparently had an episode of syncope which may be due to multiple causes. He states that he was relatively shaky and had not eaten breakfast and this have may been due to low blood sugar. 2. We will check a 2-D echo as well as carotid Doppler to look for possible causes of syncope. 3. He will be followed on telemetry as he does have a history of frequent PVCs to rule out significant arrhythmia. 4. If found to have a lowered ejection fraction on echocardiogram, possible workup for ischemic cardiomyopathy will be necessary, although apparently he has had this workup at some time in the past. If ejection fraction is normal, then most likely does not need further workup from this standpoint. 5. Overall needs better blood pressure control and so we will plan on starting him on MILA inhibitor therapy. 6. He currently has on a Holter monitor. We will wait for the results of this. If nothing is found, consideration could be made for longer rhythm analysis in the outpatient setting. Further recommendations will be made based on the hospital course. Thank you for allowing me to see Eduardo Jolly. If there are any questions, please do not hesitate to call. Galen Avendaño DO [facility]/SA /5:02 PM /8:51 PM
--- NOTE | 2017-06-25 22:04 | MG ---
cc: HANK MILLER MD Lab No: Date: 06/25/17 Age: 71 Sex: M Race: REQUESTING PHYSICIAN Dr. Calvert An EEG was obtained on this 71-year-old patient being evaluated for confusion. The patient is described as awake and asleep. There is a background of 7-9 per second alpha rhythms posteriorly. There are beta rhythms diffusely. Some intermixed theta and delta activity is noted, although mild. The patient drowses and the slower rhythms become more pronounced. Hyperventilation was not performed. There are brief bursts of artifact from partial awakening. Photic stimulation showed no change. INTERPRETATION Abnormal EEG because of mild slowing indicating a mild diffuse disturbance of cerebral function. No epileptiform features present. Hank Miller MD [facility]/[place] /7:53 PM /9:41 PM
[2017-06-26] VITALS: BP 156/98; PULSE 75; RESP 18; TEMP 98.5; O2SAT 96
[2017-06-26 03:46] VITALS: PULSE 76
[2017-06-26 04:00] VITALS: BP 152/88; PULSE 85; RESP 18; TEMP 98.1; O2SAT 95
[2017-06-26 08:00] VITALS: BP 143/97; PULSE 77; RESP 20; TEMP 98.2; O2SAT 94
[2017-06-26] MEDS: SODIUM CHLORIDE 0.9% FLUSH 10 ML FLUSH IV FLUSH SCH (08:56)
[2017-06-26] MEDS: metFORMIN HCL 500 MG TAB PO SCH (08:56)
[2017-06-26] MEDS: DOCUSATE SODIUM 50 MG/SENNA 8.6 MG TAB PO SCH (08:56)
[2017-06-26] MEDS: METOPROLOL TARTRATE 25 MG TAB PO SCH (08:57)
--- NOTE | 2017-06-26 10:01 | HHI.PR ---
Subjective Remarks 71-year-old with PMH of DM, and HTN who presented to the ED via [facility] after suffering syncopal episode while at [employer]. Daughter who is at bedside repots that patient was at [employer] at the check out [place] when he reportedly became incoherent, with repetitive speaking. Patient is not sure what occurred, but remembers that his head hit the floor. Patient repots that he does have a history of lightheadedness when he takes his Metformin more than once a day. Lightheadedness will be even worse when he takes glipizide along with the Metformin for this reason he does not takes his Glipizide on a regular basis. Patient repots chest soreness and pain, believes this may be related to the fall. At the moment he denies any SOB, lightheadedness, nausea, vomiting, headaches, visual changes, or weakness. His only pain that he complains of in the head is from "head brace" that was placed on him. He also repots taking supplements which he gets through [facility] to prevent him from having strokes since he has a past family history of flanagan. Patient reports that he does not regularly see a access manager although he does have a history of high blood pressure along with frequent PVCs. Daughter reports that patient was supposed to be on a beta dyana although has not been taking this. Discussed the plan to keep patient in observation unit for workup along with testing. Patient reports that he has had an EEG in the past due to eye twitching. He also reports having heart catheterization over 10 years ago which was normal. [facility] which she states was normal. 06-25 HAD ECHO TODAY CONFUSED/APHASIC NEEDS PT AND OT EVAL AND ST EVAL DW RN AND PT MONITOR TODAY NEED TO OBTAIN HOME MEDICATIONS 06-26 HAD EEG HAD ECHO-STABLE CAN BE DCED TO HOME [facility]ITE MEDICATIONS [facility] RN AND PT Objective Vitals Vital Signs Date Time Temp Pulse Resp B/P (MAP) Pulse Ox O2 Delivery O2 Flow Rate FiO2 06/26/17 04:00 98.1 85 18 152/88 (109) 95 06/26/17 03:46 76 06/26/17 00:00 98.5 75 18 156/98 (117) 96 06/25/17 23:47 74 06/25/17 20:43 Room Air 06/25/17 20:00 98.9 86 18 177/84 (115) 98 06/25/17 19:48 84 06/25/17 16:00 84 06/25/17 16:00 98.3 86 20 134/98 (110) 97 06/25/17 12:00 97.7 74 20 191/93 (125) 99 I/O 06/25/17 06/25/17 06/25/17 06/26/17 06/26/17 06/26/17 07:00 15:00 23:00 07:00 15:00 23:00 Intake Total 1360 ml Output Total 325 ml Balance 1035 ml Intake Oral 360 ml IV Total 1000 ml Output Urine Total 325 ml # Voids 5 1 # Bowel Movements 1 Result Diagram: 06/25/17 1055 06/25/17 1055 Other Results Laboratory Tests Test 06/24/17 14:44 06/25/17 10:55 White Blood Count 8.3 TH/MM3 8.6 TH/MM3 Red Blood Count 4.69 MIL/MM3 4.35 MIL/MM3 Hemoglobin 14.3 GM/DL 13.1 GM/DL Hematocrit 40.4 % 37.7 % Mean Corpuscular Volume 86.0 FL 86.7 FL Mean Corpuscular Hemoglobin 30.4 PG 30.1 PG Mean Corpuscular Hemoglobin Concent 35.3 % 34.7 % Red Cell Distribution Width 14.5 % 14.5 % Platelet Count 182 TH/MM3 173 TH/MM3 Mean Platelet Volume 8.6 FL 8.3 FL Neutrophils (%) (Auto) 73.0 % 69.2 % Lymphocytes (%) (Auto) 16.9 % 18.6 % Monocytes (%) (Auto) 7.3 % 10.8 % Eosinophils (%) (Auto) 2.2 % 0.9 % Basophils (%) (Auto) 0.6 % 0.5 % Neutrophils # (Auto) 6.0 TH/MM3 6.0 TH/MM3 Lymphocytes # (Auto) 1.4 TH/MM3 1.6 TH/MM3 Monocytes # (Auto) 0.6 TH/MM3 0.9 TH/MM3 Eosinophils # (Auto) 0.2 TH/MM3 0.1 TH/MM3 Basophils # (Auto) 0.0 TH/MM3 0.0 TH/MM3 CBC Comment DIFF FINAL DIFF FINAL Differential Comment Urine Color YELLOW Urine Turbidity CLEAR Urine pH 6.5 Urine Specific [place] 1.020 Urine Protein 100 mg/dL Urine Glucose (UA) 1000 mg/dL Urine Ketones NEG mg/dL Urine Occult Blood SMALL Urine Nitrite NEG Urine Bilirubin NEG Urine Urobilinogen LESS THAN 2.0 MG/DL Urine Leukocyte Esterase NEG Urine RBC 5 /hpf Urine WBC 3 /hpf Microscopic Urinalysis Comment CULT NOT INDICATED Blood Urea Nitrogen 18 MG/DL 18 MG/DL Creatinine 1.17 MG/DL 1.14 MG/DL Random Glucose 290 MG/DL 218 MG/DL Total Protein 7.5 GM/DL Albumin 3.5 GM/DL Calcium Level 8.2 MG/DL 8.6 MG/DL Alkaline Phosphatase 92 U/L Aspartate Amino Transf (AST/SGOT) 27 U/L Alanine Aminotransferase (ALT/SGPT) 20 U/L Total Bilirubin 0.5 MG/DL Sodium Level 134 MEQ/L 141 MEQ/L Potassium Level 4.5 MEQ/L 4.2 MEQ/L Chloride Level 102 MEQ/L 106 MEQ/L Carbon Dioxide Level 22.8 MEQ/L 27.7 MEQ/L Anion Gap 9 MEQ/L 7 MEQ/L Estimat Glomerular Filtration Rate 61 ML/MIN 63 ML/MIN Urine Opiates Screen NEG Urine Barbiturates Screen NEG Urine Amphetamines Screen NEG Urine Benzodiazepines Screen NEG Urine Cocaine Screen NEG Urine Cannabinoids Screen NEG Ethyl Alcohol Level LESS THAN 3 MG/DL Imaging Last Impressions Cervical Spine CT 06/24/17 1346 Signed Impressions: Service Date/Time: Saturday, June 24, 2017 13:51 - CONCLUSION: Mild degenerative changes. No fracture Arnaud De Anda MD FACR Head CT 06/24/17 0000 Signed Impressions: Service Date/Time: Saturday, June 24, 2017 13:51 - CONCLUSION: Negative for acute process. Chronic sinus disease. Arnaud De Anda MD FACR Carotid Artery Ultrasound 06/24/17 0000 Signed Impressions: Service Date/Time: Saturday, June 24, 2017 17:52 - CONCLUSION: 1. Minimal plaque in the carotid arteries bilaterally without hemodynamically significant stenosis. Vertebral artery flow antegrade. Juan Gonzalez MD Objective Remarks GENERAL: Awake alert talkative and cooperative some degree of aphasia has difficulty getting the words out SKIN: Warm and dry. HEAD: Atraumatic. Normocephalic. EYES: Pupils equal and round. No scleral icterus. No injection or drainage. Extraocular muscles appear grossly intact ENT: No nasal bleeding or discharge. Mucous membranes pink and moist. Tongue is midline NECK: Trachea midline. No JVD. Supple CARDIOVASCULAR: Regular rate and rhythm. S1 and S2 no S3 or S4 RESPIRATORY: No accessory muscle use. Clear to auscultation. Breath sounds equal bilaterally. GASTROINTESTINAL: Abdomen soft, non-tender, nondistended. Hepatic and splenic margins not palpable. Obese MUSCULOSKELETAL: Extremities without clubbing, cyanosis, or edema. No obvious deformities. NEUROLOGICAL: Awake and alert. No obvious cranial nerve deficits. Motor grossly within normal limits. 4 out of 5 muscle strength in the arms and legs. Normal speech. Some degree of aphasia PSYCHIATRIC: INAppropriate mood and affect; insight and judgment ABnormal. Procedures NONE Medications and IVs Current Medications Labetalol HCl (Trandate Inj) 10 mg ONCE ONCE IV PUSH Last administered on 06/24at 16:43; Start 06/24/17 at 16:15; Stop 06/24/17 at 16:17; Status DC Sodium Chloride 1,000 ml @ 100 mls/hr Q10H IV Last administered on 06/25/17at 20:42; Start 06/24/17 at 18:00 Sodium Chloride (NS Flush) 2 ml UNSCH PRN IV FLUSH FLUSH AFTER USING IV ACCESS ; Start 06/24/17 at 17:00 Sodium Chloride (NS Flush) 2 ml BID IV FLUSH Last administered on 06/25/17at 09: 17; Start 06/24/17 at 21:00 Acetaminophen (Tylenol) 650 mg Q4H PRN PO TEMP > 100.4; Start 06/24/17 at 17:00 Ondansetron HCl (Zofran Inj) 4 mg Q6H PRN IVP NAUSEA OR VOMITING; Start at 17:00 Enoxaparin Sodium (Lovenox Inj) 40 mg Q24H SQ Last administered on 06/25/17at 18 :33; Start 06/24/17 at 18:00 Naloxone HCl (Narcan Inj) 0.4 mg UNSCH PRN IV PUSH SEE LABEL COMMENTS; Start at 17:00 Senna/Docusate Sodium (Barbie-Colace) 1 tab BID PO Last administered on at 08:56; Start 06/24/17 at 21:00 Magnesium Hydroxide (Milk Of Magnesia Liq) 30 ml Q12H PRN PO Mild constipation ; Start 06/24/17 at 17:00 Sennosides (Senokot) 17.2 mg Q12H PRN PO Moderate constipation; Start 06/24/17 at 17:00 Bisacodyl (Dulcolax Supp) 10 mg DAILY PRN RECTAL SEVERE CONSITIPATION; Start at 17:00 Lactulose (Lactulose Liq) 30 ml DAILY PRN PO SEVERE CONSITIPATION; Start at 17:00 Insulin Aspart (NovoLOG SUPPLEMENTAL SCALE) 1 ACHS SLIDING SCALE SQ Last administered on 06/25/17at 12:58; Start 06/24/17 at 21:00 Metoprolol Tartrate (Lopressor) 25 mg Q12HR PO Last administered on 06/26/17at 08:57; Start 06/24/17 at 21:00 Enalaprilat (Vasotec Inj) 2.5 mg Q6H PRN IV PUSH SBP>160, DBP>90 Last administered on 06/24/17at 19:05; Start 06/24/17 at 17:45 Dextrose (D50w (Vial) Inj) 50 ml UNSCH PRN IV PUSH HYPOGLYCEMIA - SEE COMMENTS ; Start 06/24/17 at 18:00 Glucagon (Glucagon Inj) 1 mg UNSCH PRN OTHER HYPOGLYCEMIA-SEE COMMENTS; Start 06/24/17 at 18:00 Metformin HCl (Glucophage) 1,000 mg DAILY PO Last administered on 06/26/17at 08: 56; Start 06/25/17 at 16:15 Lisinopril (Prinivil) 10 mg DAILY PO Last administered on 06/25/17at 18:32; Start 06/25/17 at 17:15 A/P Problem List: (1) Syncope ICD Code: R55 - Syncope and collapse (2) Diabetes ICD Code: E11.9 - Type 2 diabetes mellitus without complications (3) HTN (hypertension) ICD Code: I10 - Essential (primary) hypertension Assessment and Plan 71-year-old male with past medical history of hypertension, diabetes, and frequent PVCs who suffered syncopal episode while a supermarket hitting his head and chipping front tooth. Patient reportedly became incoherent with repetitive speaking prior to landing on the floor. Syncopal episode -Cervical spine CT scan done, reviewed mild degenerative changes, no fracture. - Head CT reviewed, negative for acute process, chronic sinus disease. - Will admit patient to observation with telemetry for workup - Neuro checks every 4 hours - Check 2-D echo - Will check EEG - Check carotid ultrasound - Consult cardiology, appreciate recommendations. - Tylenol for chest soreness/pain -AWAIT CARDIAC EVAL- SEEN BY THEM ECHO IS STABLE- MEDS STARTED Hypertension, uncontrolled - Blood pressure on admission 198/123, patient received 10 mg of Labetalol IV in ED - Start metoprolol 25 mg twice a day - Vasotec 2.5 mg IV Q6 PRN - Monitor BP - MEDICATIONS ADJUSTED Diabetes mellitus II - Accu-Cheks with insulin sliding scale - ADA diet - Close monitoring for hypoglycemia - RESUME METFORMIN DVT prophylaxis - SCDs and Lovenox DC TO HOME TODAY Discharge Planning DC TO HOME TODAY Arnaud Malone DO Jun 26, 2017 10:01
[2017-06-26] MEDS ORDERED: METF1000 PO (10:04)
[2017-06-26] MEDS ORDERED: METO25TA3 PO (10:04)
[2017-06-26] MEDS ORDERED: LISI10TA3 PO (10:04)
--- NOTE | 2017-06-26 10:05 | HHI.DS ---
Discharge Summary Admission Date Jun 24, 2017 at 16:59 Discharge Date: Jun 26, 2017 Admitting Diagnosis SYNCOPE,ACCELERATED HTN,BIGEMINY (1) Syncope ICD Code: R55 - Syncope and collapse Diagnosis: Principal (2) Diabetes ICD Code: E11.9 - Type 2 diabetes mellitus without complications Diagnosis: Secondary (3) HTN (hypertension) ICD Code: I10 - Essential (primary) hypertension Diagnosis: Secondary Procedures NONE Brief History - From Admission 71-year-old with PMH of DM, and HTN who presented to the ED via [facility] after suffering syncopal episode while at [employer]. Daughter who is at bedside repots that patient was at [employer] at the check out [place] when he reportedly became incoherent, with repetitive speaking. Patient is not sure what occurred, but remembers that his head hit the floor. Patient repots that he does have a history of lightheadedness when he takes his Metformin more than once a day. Lightheadedness will be even worse when he takes glipizide along with the Metformin for this reason he does not takes his Glipizide on a regular basis. Patient repots chest soreness and pain, believes this may be related to the fall. At the moment he denies any SOB, lightheadedness, nausea, vomiting, headaches, visual changes, or weakness. His only pain that he complains of in the head is from "head brace" that was placed on him. He also repots taking supplements which he gets through [facility] to prevent him from having strokes since he has a past family history of flanagan. Patient reports that he does not regularly see a controller repairer and tester although he does have a history of high blood pressure along with frequent PVCs. Daughter reports that patient was supposed to be on a beta dyana although has not been taking this. Discussed the plan to keep patient in observation unit for workup along with testing. Patient reports that he has had an EEG in the past due to eye twitching. He also reports having heart catheterization over 10 years ago which was normal. [facility] ago which she states was normal. CBC/BMP: 06/25/17 1055 06/25/17 1055 Significant Findings Laboratory Tests Test 06/24/17 14:44 06/25/17 10:55 Neutrophils (%) (Auto) 73.0 % (16.0-70.0) Urine Protein 100 mg/dL (NEG-TRACE) Urine Glucose (UA) 1000 mg/dL (NEG) Urine Occult Blood SMALL (NEG) Urine RBC 5 /hpf (0-3) Random Glucose 290 MG/DL (74-106) 218 MG/DL (74-106) Calcium Level 8.2 MG/DL (8.5-10.1) Sodium Level 134 MEQ/L (136-145) Estimat Glomerular Filtration Rate 61 ML/MIN (>89) 63 ML/MIN (>89) Red Blood Count 4.35 MIL/MM3 (4.50-5.90) Hematocrit 37.7 % (39.0-51.0) Monocytes (%) (Auto) 10.8 % (0.0-8.0) Imaging Last Impressions Cervical Spine CT 06/24/17 1346 Signed Impressions: Service Date/Time: Saturday, June 24, 2017 13:51 - CONCLUSION: Mild degenerative changes. No fracture Arnaud De Anda MD FACR Head CT 06/24/17 0000 Signed Impressions: Service Date/Time: Saturday, June 24, 2017 13:51 - CONCLUSION: Negative for acute process. Chronic sinus disease. Arnaud De Anda MD FACR Carotid Artery Ultrasound 06/24/17 0000 Signed Impressions: Service Date/Time: Saturday, June 24, 2017 17:52 - CONCLUSION: 1. Minimal plaque in the carotid arteries bilaterally without hemodynamically significant stenosis. Vertebral artery flow antegrade. Juan Gonzalez MD PE at Discharge GENERAL: Awake alert talkative and cooperative some degree of aphasia has difficulty getting the words out SKIN: Warm and dry. HEAD: Atraumatic. Normocephalic. EYES: Pupils equal and round. No scleral icterus. No injection or drainage. Extraocular muscles appear grossly intact ENT: No nasal bleeding or discharge. Mucous membranes pink and moist. Tongue is midline NECK: Trachea midline. No JVD. Supple CARDIOVASCULAR: Regular rate and rhythm. S1 and S2 no S3 or S4 RESPIRATORY: No accessory muscle use. Clear to auscultation. Breath sounds equal bilaterally. GASTROINTESTINAL: Abdomen soft, non-tender, nondistended. Hepatic and splenic margins not palpable. Obese MUSCULOSKELETAL: Extremities without clubbing, cyanosis, or edema. No obvious deformities. NEUROLOGICAL: Awake and alert. No obvious cranial nerve deficits. Motor grossly within normal limits. 4 out of 5 muscle strength in the arms and legs. Normal speech. Some degree of aphasia PSYCHIATRIC: INAppropriate mood and affect; insight and judgment ABnormal. Hospital Course 71-year-old with PMH of DM, and HTN who presented to the ED via [facility] after suffering syncopal episode while at [employer]. Daughter who is at bedside repots that patient was at [employer] at the check [place] when he reportedly became incoherent, with repetitive speaking. Patient is not sure what occurred, but remembers that his head hit the floor. Patient repots that he does have a history of lightheadedness when he takes his Metformin more than once a day. Lightheadedness will be even worse when he takes glipizide along with the Metformin for this reason he does not takes his Glipizide on a regular basis. Patient repots chest soreness and pain, believes this may be related to the fall. At the moment he denies any SOB, lightheadedness, nausea, vomiting, headaches, visual changes, or weakness. His only pain that he complains of in the head is from "head brace" that was placed on him. He also repots taking supplements which he gets through [facility] to prevent him from having strokes since he has a past family history of flanagan. Patient reports that he does not regularly see a controller repairer and tester although he does have a history of high blood pressure along with frequent PVCs. Daughter reports that patient was supposed to be on a beta dyana although has not been taking this. Discussed the plan to keep patient in observation unit for workup along with testing. Patient reports that he has had an EEG in the past due to eye twitching. He also reports having heart catheterization over 10 years ago which was normal. [facility] a [facility] ago which she states was normal. 1- HAD ECHO TODAY CONFUSED/APHASIC NEEDS PT AND OT EVAL AND ST EVAL [facility] RN AND PT MONITOR TODAY NEED TO OBTAIN HOME MEDICATIONS 06-26 HAD EEG HAD ECHO-STABLE CAN BE DCED TO HOME [facility] WILL WRITE MEDICATIONS [facility] RN AND PT Pt Condition on Discharge: Good Discharge Disposition: Discharge Home Discharge Time: <= 30 minutes Discharge Instructions DIET: Follow Instructions for: Heart Healthy Diet, Diabetic Diet Speech Therapy-Diet Recommends: Regular Activities you can perform: Regular-No Restrictions, Weight Bearing as Aki Follow up Referrals: Cardiology with Galen Nieto DO PCP Follow-up - 2 Days @ [place] [facility] New Medications: Lisinopril (Lisinopril) 10 Mg Tab 10 MG PO DAILY for Blood Pressure Management, #30 TAB Metoprolol Tartrate (Metoprolol Tartrate) 25 Mg Tab 25 MG PO Q12HR for Blood Pressure Management, #60 TAB Continued Medications: Metformin (Metformin) 1,000 Mg Tab 1000 MG PO DAILY for Blood Sugar Management, #30 TAB 0 Refills (This prescription has been renewed) With a meal Arnaud Malone DO Jun 26, 2017 10:05
[2017-06-26 11:45] LABS: AUTOMATED NEUTROPHIL # 5.7 TH/MM3 (1.8-7.7); BASOPHIL % 0.5 % (0.0-2.0); EOSINOPHIL # 0.1 TH/MM3 (0-0.4); EOSINOPHIL % 1.3 % (0.0-4.0); HEMATOCRIT 38.5 % (39.0-51.0); LYMPH % 21.3 % (9.0-44.0); LYMPHOCYTE # 1.8 TH/MM3 (1.0-4.8); MEAN CELL VOLUME 87.3 FL (80.0-100.0); MEAN CORPUSCULAR HEMOGLOBIN 29.6 PG (27.0-34.0); MEAN CORPUSCULAR HGB CONC 33.9 % (32.0-36.0); MEAN PLATELET VOLUME 8.6 FL (7.0-11.0); MONO % 9.3 % (0.0-8.0); MONOCYTE # 0.8 TH/MM3 (0-0.9); NEUT % 67.6 % (16.0-70.0); PLATELET COUNT 176 TH/MM3 (150-450); RED BLOOD COUNT 4.41 MIL/MM3 (4.50-5.90); RED CELL DISTRIBUTION WIDTH 14.6 % (11.6-17.2); WHITE BLOOD COUNT 8.5 TH/MM3 (4.0-11.0)
[2017-06-26 12:00] VITALS: BP 170/85; PULSE 80; RESP 20; TEMP 98.2; O2SAT 99
[2017-06-26 12:14] LABS: AST (GOT) 14 U/L (15-37); BICARBONATE 26.4 MEQ/L (21.0-32.0); BLOOD UREA NITROGEN 16 MG/DL (7-18); CALCIUM 8.3 MG/DL (8.5-10.1); CHLORIDE 106 MEQ/L (98-107); CREATININE 0.92 MG/DL (0.60-1.30); GLOMERULAR FILTRATION RATE 81 ML/MIN (>89); GLUCOSE,RANDOM 194 MG/DL (74-106); SODIUM (NA) 139 MEQ/L (136-145)
[2017-06-26 12:23] LABS: ALKALINE PHOSPHATASE 70 U/L (45-117); ALT (GPT) 14 U/L (12-78); FREE T4 0.93 NG/DL (0.76-1.46); PHOSPHORUS 2.6 MG/DL (2.5-4.9); TOTAL BILIRUBIN ADULT 0.6 MG/DL (0.2-1.0); TOTAL PROTEIN 6.5 GM/DL (6.4-8.2)
--- NOTE | 2017-06-26 12:45 | PD.CARD.PN ---
Subjective Subjective Remarks No events overnight No chest pain/SOB/palpitations Objective Medications Current Medications Medications (Trade) Dose Ordered Sig/Juany Route Start Time Stop Time Status Last Admin Sodium Chloride 1,000 ml @ 100 mls/hr Q10H IV 06/24/17 18:00 06/25/17 20:42 (NS Flush) 2 ml UNSCH PRN IV FLUSH 06/24/17 17:00 (NS Flush) 2 ml BID IV FLUSH 06/24/17 21:00 06/25/17 09:17 (Tylenol) 650 mg Q4H PRN PO 06/24/17 17:00 (Zofran Inj) 4 mg Q6H PRN IVP 06/24/17 17:00 (Lovenox Inj) 40 mg Q24H SQ 06/24/17 18:00 06/25/17 18:33 (Narcan Inj) 0.4 mg UNSCH PRN IV PUSH 06/24/17 17:00 (Barbie-Colace) 1 tab BID PO 06/24/17 21:00 06/26/17 08:56 (Milk Of Magnesia Liq) 30 ml Q12H PRN PO 06/24/17 17:00 (Senokot) 17.2 mg Q12H PRN PO 06/24/17 17:00 (Dulcolax Supp) 10 mg DAILY PRN RECTAL 06/24/17 17:00 (Lactulose Liq) 30 ml DAILY PRN PO 06/24/17 17:00 (NovoLOG SUPPLEMENTAL SCALE) 1 ACHS SLIDING SCALE SQ 06/24/17 21:00 06/25/17 12:58 (Lopressor) 25 mg Q12HR PO 06/24/17 21:00 06/26/17 08:57 (Vasotec Inj) 2.5 mg Q6H PRN IV PUSH 06/24/17 17:45 06/24/17 19:05 (D50w (Vial) Inj) 50 ml UNSCH PRN IV PUSH 06/24/17 18:00 (Glucagon Inj) 1 mg UNSCH PRN OTHER 06/24/17 18:00 (Glucophage) 1,000 mg DAILY PO 06/25/17 16:15 06/26/17 08:56 (Prinivil) 10 mg DAILY PO 06/25/17 17:15 06/25/17 18:32 Vital Signs / I&O Vital Signs Date Time Temp Pulse Resp B/P (MAP) Pulse Ox O2 Delivery O2 Flow Rate FiO2 06/26/17 08:00 Room Air 06/26/17 08:00 98.2 77 20 143/97 (112) 94 06/26/17 04:00 98.1 85 18 152/88 (109) 95 06/26/17 03:46 76 06/26/17 00:00 98.5 75 18 156/98 (117) 96 06/25/17 23:47 74 06/25/17 20:43 Room Air 06/25/17 20:00 98.9 86 18 177/84 (115) 98 06/25/17 19:48 84 06/25/17 16:00 84 06/25/17 16:00 98.3 86 20 134/98 (110) 97 I/O 06/25/17 06/25/17 06/25/17 06/26/17 06/26/17 06/26/17 07:00 15:00 23:00 07:00 15:00 23:00 Intake Total 1360 ml Output Total 325 ml Balance 1035 ml Intake Oral 360 ml IV Total 1000 ml Output Urine Total 325 ml # Voids 5 1 # Bowel Movements 1 Physical Exam GENERAL: NAD, AAOx3 SKIN: Warm and dry. HEAD: Atraumatic. Normocephalic. EYES: Pupils equal and round. No scleral icterus. No injection or drainage. ENT: No nasal bleeding or discharge. Mucous membranes pink and moist. NECK: Trachea midline. No JVD. CARDIOVASCULAR: Regular rate and rhythm. RESPIRATORY: No accessory muscle use. Clear to auscultation. Breath sounds equal bilaterally. GASTROINTESTINAL: Abdomen soft, non-tender, nondistended. Hepatic and splenic margins not palpable. MUSCULOSKELETAL: Extremities without clubbing, cyanosis, or edema. No obvious deformities. NEUROLOGICAL: Awake and alert. No obvious cranial nerve deficits. Motor grossly within normal limits. Five out of 5 muscle strength in the arms and legs. Normal speech. PSYCHIATRIC: Appropriate mood and affect; insight and judgment normal. Laboratory Laboratory Tests Test 06/26/17 10:29 White Blood Count 8.5 TH/MM3 Red Blood Count 4.41 MIL/MM3 Hemoglobin 13.0 GM/DL Hematocrit 38.5 % Mean Corpuscular Volume 87.3 FL Mean Corpuscular Hemoglobin 29.6 PG Mean Corpuscular Hemoglobin Concent 33.9 % Red Cell Distribution Width 14.6 % Platelet Count 176 TH/MM3 Mean Platelet Volume 8.6 FL Neutrophils (%) (Auto) 67.6 % Lymphocytes (%) (Auto) 21.3 % Monocytes (%) (Auto) 9.3 % Eosinophils (%) (Auto) 1.3 % Basophils (%) (Auto) 0.5 % Neutrophils # (Auto) 5.7 TH/MM3 Lymphocytes # (Auto) 1.8 TH/MM3 Monocytes # (Auto) 0.8 TH/MM3 Eosinophils # (Auto) 0.1 TH/MM3 Basophils # (Auto) 0.0 TH/MM3 CBC Comment DIFF FINAL Differential Comment Blood Urea Nitrogen 16 MG/DL Creatinine 0.92 MG/DL Random Glucose 194 MG/DL Total Protein 6.5 GM/DL Albumin 3.0 GM/DL Calcium Level 8.3 MG/DL Phosphorus Level 2.6 MG/DL Magnesium Level 2.0 MG/DL Alkaline Phosphatase 70 U/L Aspartate Amino Transf (AST/SGOT) 14 U/L Alanine Aminotransferase (ALT/SGPT) 14 U/L Total Bilirubin 0.6 MG/DL Sodium Level 139 MEQ/L Potassium Level 4.0 MEQ/L Chloride Level 106 MEQ/L Carbon Dioxide Level 26.4 MEQ/L Anion Gap 7 MEQ/L Estimat Glomerular Filtration Rate 81 ML/MIN Free Thyroxine 0.93 NG/DL Thyroid Stimulating Hormone 3rd Gen 1.190 uIU/ML Assessment and Plan Problem List: (1) Syncope ICD Codes: R55 - Syncope and collapse (2) Accelerated hypertension ICD Codes: I10 - Essential (primary) hypertension Status: Acute (3) Diabetes ICD Codes: E11.9 - Type 2 diabetes mellitus without complications (4) HTN (hypertension) ICD Codes: I10 - Essential (primary) hypertension Assessment and Plan 1) Syncopal episode Difficult to determine cause, possible hypoglycemia 2) EF 50-55%, LVH 3) Frequent PVCs chronic Agree with placing back on BB, patient agreeable 4) HTN Better controlled on MILA-I 5) Short run of narrow complex tachycardia, asymptomatic Will plan possible further rhythm analysis outpatient 6) Cardiovascularly stable for discharge Galen Nieto DO Jun 26, 2017 12:45
[2017-06-27 18:12] LABS: HEMOGLOBIN A1C 9.4 % (4.3-6.0)
== END 2017-06-26 16:14 | disposition home or self-care (01) | DRG 312 ==
LOC: NEPC 13:21 → OBSVTOIN 16:52 → NEDA 16:52 → UNDOADMOB 16:59 → N04B 18:33 → NEDA 18:33 → UNDODISOB 06-26 16:14
PROVIDERS: ADMIT Hospitalist; ATTEND Hospitalist
DX: R55 Syncope and collapse (principal); R47.01 Aphasia; E11.9 Type 2 diabetes mellitus without complications; I49.3 Ventricular premature depolarization; I10 Essential (primary) hypertension; S02.5XXA Fracture of tooth (traumatic), initial encounter for closed fracture; R07.89 Other chest pain; W19.XXXA Unspecified fall, initial encounter; I16.0 Hypertensive urgency; R00.0 Tachycardia, unspecified; Z79.84 Long term (current) use of oral hypoglycemic drugs; Y92.512 Supermarket, store or market as the place of occurrence of the external cause
CPT/HCPCS: 70450; 72125; 80048; 80053; 80307; 81001; 82948; 83036; 83735; 84100; 84439; 84443; 85025; 93005; 93306; 93880; 95819; 96374; G8987-GP; G8988-GP; G9174-GN; G9175-GN; G9176-GN; J1650; J1815; J7030